=== PATIENT | male | born 1950 | race Hispanic/Latino ===

== ENCOUNTER 2016-09-12 10:21 | Emergency (ER) | payer MEDICARE, OTHER ==
[2016-09-12] MEDS ORDERED: ZOFRAN ODT PO ONE (11:23)
[2016-09-12] MEDS ORDERED: MORPHINE IM ONE (11:23)
[2016-09-12] MEDS ORDERED: BOOSTRIX IM ONE (11:24)
--- NOTE | 2016-09-12 11:35 | Emergency Department Report ---
ED Fall HPI - General Chief Complaint: Fall Stated Complaint: THIGH PAIN (FALL) Time Seen by Provider: 09/12/16 11:13 Source: EMS Mode of arrival: Wheelchair Limitations: No Limitations - History of Present Illness Initial Comments: PT c/o leg pain sp fall last night. PT states that he went to the [employer] in [place] to play darts. PT states they did not have darts last night , so he had 2-3 crown and sprites. PT states he usually does not drink and states he drank more than he intended to. PT states he did have a fall while inside. PT states he was able to ambulate with a limp and him and his female friend ambulated to a hotel. PT states when he woke up this morning, his leg pain increased and he was not able to ambulate. PT called EMS. Complaint: fall -: Sudden Fall From: standing When Fall Occurred: other (last night) Place Fall Occurred: other Loss of Consciousness: none Prolonged Down Time?: no Symptoms Prior to Fall: none, other (pt denies) Location - Extremities: Left: Elbow, Thigh Severity: severe Severity scale (0 -10): 10 Quality: stabbing Context: alcohol use Associated Symptoms: unable to walk. denies: headache, neck pain, numbness, chest paint, shortness of breath, abdominal pain, lightheaded, vertigo, confusion - Related Data Previous Rx's Medication Instructions Recorded Last Taken Type Cephalexin [Keflex] 500 mg PO QID #40 capsule 09/12/16 Unknown Rx Oxycodone HCl/Acetaminophen 1 each PO TID PRN #10 tablet 09/12/16 Unknown Rx [Percocet 10/325 mg] Allergies Allergy/AdvReac Type Severity Reaction Status Date / Time No Known Allergies Allergy Verified 09/12/16 10:45 ED Review of Systems ROS: Stated complaint: THIGH PAIN (FALL) Other details as noted in HPI Comment: All other systems reviewed and negative Constitutional: denies: chills, fever Respiratory: denies: shortness of breath, SOB with exertion, SOB at rest Cardiovascular: denies: chest pain, syncope Gastrointestinal: denies: abdominal pain, vomiting Musculoskeletal: as per HPI Skin: other (abrasion to L elbow ) Neurological: abnormal gait (unable to ambulate ) ED Past Medical Hx - Past Medical History Hx Diabetes: Yes - Social History Smoking Status: Never Smoker Substance Use Type: Alcohol - Medications Home Medications: Home Medications Medication Instructions Recorded Confirmed Last Taken Type Cephalexin [Keflex] 500 mg PO QID #40 capsule 09/12/16 Unknown Rx Oxycodone HCl/Acetaminophen 1 each PO TID PRN #10 tablet 09/12/16 Unknown Rx [Percocet 10/325 mg] ED Physical Exam - General Limitations: No Limitations General appearance: alert, in no apparent distress - Head Head exam: Present: atraumatic, normocephalic, normal inspection - Eye Eye exam: Present: normal appearance, PERRL, EOMI. Absent: conjunctival injection - ENT ENT exam: Present: normal orophraynx, mucous membranes moist, normal external ear exam, other (blood to nares, no septal hematoma noted. ) - Neck Neck exam: Present: normal inspection, full ROM, other (no post midline C-spine tenderness ). Absent: tenderness - Respiratory Respiratory exam: Present: normal lung sounds bilaterally. Absent: respiratory distress, wheezes, chest wall tenderness - Cardiovascular Cardiovascular Exam: Present: regular rate, normal rhythm, normal heart sounds - GI/Abdominal GI/Abdominal exam: Present: soft, normal bowel sounds. Absent: tenderness, guarding, rebound - Extremities Exam Extremities exam: Present: normal inspection, tenderness. Absent: full ROM, pedal edema, calf tenderness - Expanded Upper Extremity Exam Left Shoulder Exam: Present: normal inspection, full ROM. Absent: tenderness Elbow exam: Present: full ROM, tenderness, swelling, abrasion, erythema Forearm Wrist exam: Present: normal inspection, full ROM. Absent: tenderness, swelling - Expanded Lower Extremity Exam Left Hip exam: Absent: tenderness Upper Leg exam: Present: tenderness Knee exam: Present: full knee extension (pt unable to extend lower ext without causing mid thigh pain). Absent: tenderness, swelling Lower Leg exam: Present: normal inspection. Absent: full ROM, tenderness Ankle exam: Present: normal inspection, full ROM. Absent: tenderness Foot/Toe exam: Present: normal inspection, full ROM. Absent: tenderness ED Course Vital Signs 09/12/16 09/12/16 09/12/16 10:42 11:44 15:18 Temperature 98.4 F Pulse Rate 105 H Respiratory 16 18 20 Rate Blood Pressure 115/83 Blood Pressure [Right] O2 Sat by Pulse 99 Oximetry 09/12/16 18:07 Temperature Pulse Rate 88 Respiratory 18 Rate Blood Pressure Blood Pressure 120/82 [Right] O2 Sat by Pulse 100 Oximetry - Reevaluation(s) Reevaluation #1: 09/12/16 11:39 PT aware of plan of care. Reevaluation #2: 09/12/16 14:[address] report findings. Reevaluation #3: 09/12/16 17:25 PT ambulatory with walker and L thigh gunjan wrap. PT's elbow, wrapped but not splinted due to the fact that he needs to use walker. PT aware ortho follow up mandatory. PT given strict return precautions. PT has family at bedside. - Pulse Oximetry Interpretation Digit-Finger Initial Pulse Oximetry Readin Actions Taken: none ED Medical Decision Making - Lab Data Result diagrams: 09/12/16 13:24 09/12/16 13:24 Lab Results 09/12/16 09/12/16 09/12/16 Range/Units 13:24 13:24 13:24 WBC 11.7 H (4.5-11.0) K/mm3 RBC 5.14 H (3.65-5.03) M/mm3 Hgb 15.1 (11.8-15.2) gm/dl Hct 45.7 H (35.5-45.6) % MCV 89 (84-94) fl MCH 29 (28-32) pg MCHC 33 (32-34) % RDW 16.4 H (13.2-15.2) % Plt Count 228 (140-440) K/mm3 Lymph % (Auto) 6.2 L (13.4-35.0) % Lyman % (Auto) 5.5 (0.0-7.3) % Eos % (Auto) 0.2 (0.0-4.3) % Baso % (Auto) 0.2 (0.0-1.8) % Lymph # 0.7 L (1.2-5.4) K/mm3 Lyman # 0.6 (0.0-0.8) K/mm3 Eos # 0.0 (0.0-0.4) K/mm3 Baso # 0.0 (0.0-0.1) K/mm3 Seg Neutrophils % 87.9 H (40.0-70.0) % Seg Neutrophils # 10.3 H (1.8-7.7) K/mm3 PT 29.4 H (12.2-14.9) Sec. INR 2.77 H (0.87-1.13) APTT 51.1 H (24.2-36.6) Sec. Sodium 135 L (137-145) mmol/L Potassium 4.6 (3.6-5.0) mmol/L Chloride 93.4 L (98-107) mmol/L Carbon Dioxide 22 (22-30) mmol/L Anion Gap 24 mmol/L BUN 24 H (9-20) mg/dL Creatinine 1.0 (0.8-1.5) mg/dL Estimated GFR > 60 ml/min BUN/Creatinine Ratio 24.00 % Glucose 155 H (75-100) mg/dL Calcium 9.1 (8.4-10.2) mg/dL Total Bilirubin 0.70 (0.1-1.2) mg/dL AST 13 (5-40) units/L ALT 8 (7-56) units/L Alkaline Phosphatase 53 (35-129) units/L Total Protein 7.3 (6.3-8.2) g/dL Albumin 3.8 L (3.9-5) g/dL Albumin/Globulin Ratio 1.1 % PT on Coumadin - Radiology Data Radiology results: report reviewed CT head - NAP CT pelvis - NAP - ddd, OA breana hips L elbow- possible fx L femur - nap - Differential Diagnosis fracture, contusion, strain, intracranial process, laceration, avulsion Critical Care Time: No Critical care attestation.: If time is entered above; I have spent that time in minutes in the direct care of this critically ill patient, excluding procedure time. ED Disposition Clinical Impression: Epistaxis, Left thigh pain Fall Qualifiers: Encounter type: initial encounter Qualified Code(s): W19.XXXA - Unspecified fall, initial encounter Laceration of left elbow Qualifiers: Encounter type: initial encounter Qualified Code(s): S51.012A - Laceration without foreign body of left elbow, initial encounter Disposition: DISCHARGED TO HOME OR SELFCARE Is pt being admited?: No Does the pt Need Aspirin: No Condition: Stable Instructions: Fall Prevention for Older Adults (ED), Arthralgia (ED), Fall Prevention (ED) Additional Instructions: No driving or ETOH after narcotic pain medication Use crutches/ walker as needed for assistance Follow up with ORTHO in 2-3 days return to the ED if worsening or concerns Prescriptions: Cephalexin [Keflex] 500 mg PO QID #40 capsule Oxycodone HCl/Acetaminophen [Percocet 10/325 mg] 1 each PO TID PRN #10 tablet PRN Reason: Pain Referrals: PRIMARY CAREMD [Primary Care Provider] - 3-5 Days ERIK GAYTAN MD [Staff Physician] - 3-5 Days Forms: Work/School Release Form(ED), Accompanied Note
[2016-09-12 13:39] LABS: Basophils % (Auto) 0.2 % (0.0-1.8); Eosinophils % (Auto) 0.2 % (0.0-4.3); Hematocrit 45.7 % (35.5-45.6); Hemoglobin 15.1 gm/dl (11.8-15.2); Mean Corpuscular HGB Conc 33 % (32-34); Mean Corpuscular Hemoglobin 29 pg (28-32); Mean Corpuscular Volume 89 fl (84-94); Platelet Count 228 K/mm3 (140-440); Red Blood Count 5.14 M/mm3 (3.65-5.03); Red Cell Distribution Width 16.4 % (13.2-15.2); White Blood Count 11.7 K/mm3 (4.5-11.0)
[2016-09-12 13:47] LABS: INR 2.77 (0.87-1.13)
[2016-09-12 13:49] LABS: Partial Thromboplastin Time 51.1 Sec. (24.2-36.6)
[2016-09-12 14:21] LABS: Alanine Aminotransferase 8 units/L (7-56); Albumin 3.8 g/dL (3.9-5); Albumin/Globulin Ratio 1.1 %; Alkaline Phosphatase 53 units/L (35-129); Anion Gap 24 mmol/L; Blood Urea Nitrogen 24 mg/dL (9-20); Calcium 9.1 mg/dL (8.4-10.2); Carbon Dioxide 22 mmol/L (22-30); Chloride 93.4 mmol/L (98-107); Glucose 155 mg/dL (75-100); Potassium 4.6 mmol/L (3.6-5.0); Sodium 135 mmol/L (137-145); Total Protein 7.3 g/dL (6.3-8.2)
--- NOTE | 2016-09-12 14:29 | XRay Report ---
LEFT FEMUR: History: Left leg pain after fall. AP and lateral views of the femur demonstrate normal mineralization and contours for this patient's age. No destructive changes are noted and the adjacent soft tissues are normal. IMPRESSION: Normal left femur.
--- NOTE | 2016-09-12 14:30 | XRay Report ---
LEFT HIP, 2 views: History: Left hip pain. The bony architecture is intact without evidence of fracture or dislocation. No significant soft tissue abnormality is seen. IMPRESSION: Unremarkable left hip.
--- NOTE | 2016-09-12 14:33 | XRay Report ---
LEFT ELBOW, 3 views: History: Left elbow pain after fall There is posterior soft tissue swelling and trace gas suggesting a laceration. An olecranon spur is identified which may be fractured at its base. Please correlate with the image. Otherwise the distal humerus, proximal radius and ulna are intact. No joint pathology is appreciated. IMPRESSION: Soft tissue findings as described. Questionable fracture of an olecranon spur.
--- NOTE | 2016-09-12 14:34 | Cat Scan Report ---
CT HEAD WITHOUT CONTRAST: HISTORY: Closed head injury, fall. TECHNIQUE: Sequential CT images without contrast. FINDINGS: Images obtained show bilateral prominence of the sulci and ventricles. There are no abnormal intra- or extra-axial blood or fluid collections. There are no focal masses or evidence of mass effect. The agarwal white matter differentiation appears within normal limits. Regions of periventricular decreased attenuation are consistent with microangiopathic ischemic disease. The posterior fossa structures including the fourth ventricle, cerebellum, and brainstem appear normal. IMPRESSION: Evidence of atrophy and microangiopathic ischemic disease. No acute intracranial process noted.
--- NOTE | 2016-09-12 14:48 | Cat Scan Report ---
CT PELVIS WITHOUT CONTRAST History: Left leg pain after fall, unable to ambulate. Technique: Helical CT with sagittal and coronal reformatted images. Findings: There is no evidence for pelvic fracture, diastasis or bone lesion. Both femoral heads are well seated within their respective acetabula. No hip or proximal femur fracture is detected. There are mild degenerative changes at both hip joints. Moderate degenerative disc disease at L5-S1. The SI joints are unremarkable. The pelvic viscera are within normal limits. Impression: Unremarkable exam. Mild degenerative changes. No acute injury is detected.
[2016-09-12] MEDS ORDERED: KEFLEX PO ONE (14:56)
[2016-09-12] MEDS ORDERED: TRIPLE ANTIBIOTIC TP ONE (14:56)
[2016-09-12] MEDS ORDERED: DILAUDID IM ONE (14:56)
[2016-09-12 18:07] VITALS: BP 120/82
== END 2016-09-12 17:48 | disposition home or self-care (01) ==
LOC: ED 10:21
DX: S51.012A Laceration without foreign body of left elbow, initial encounter (principal); M79.652 Pain in left thigh; R04.0 Epistaxis; E11.9 Type 2 diabetes mellitus without complications; W18.39XA Other fall on same level, initial encounter; Y93.89 Activity, other specified; Y99.8 Other external cause status; Y92.89 Other specified places as the place of occurrence of the external cause
CPT/HCPCS: 36415; 70450; 72192; 73080; 73502; 73552; 80053; 85025; 85610; 85730; 90471; 90715; 96372; 99285; J1170; J2270; A6250; Q0162